=== PATIENT | female | born 1965 | race Caucasian/White ===

== ENCOUNTER 2017-01-05 19:26 | Emergency (ER) | payer BC ==
[~2017-01-05] VITALS: Ht 172.7 cm; Wt 99.8 kg
[2017-01-05 19:55] VITALS: BP 136/63
[2017-01-05] MEDS ORDERED: HYDROcodone/APAP 5/325MG 1 TAB TABLET PO ONE (20:30)
[2017-01-05] MEDS ORDERED: ACET-704 PO (20:50)
--- NOTE | 2017-01-05 20:50 | PHYS DOC ---
Past Medical History Past Medical History: GERD, High Cholesterol Past Surgical History: Appendectomy, Cholecystectomy, Colectomy, Hysterectomy, Knee Replacement Additional Past Surgical Histo: Pulmonary valve repair, shoulder, hernia Alcohol Use: None Drug Use: None Adult General Chief Complaint Chief Complaint: FINGER INJURY HPI HPI Patient is a 51 year old female who presents with right index finger and middle finger contusions after her fingers were caught/smashed in a car door. Review of Systems Review of Systems Constitutional: Denies fever or chills [] Eyes: Denies change in visual acuity, redness, or eye pain [] Musculoskeletal: right index finger and middle finger contusions Integument: Denies rash or skin lesions [] Neurologic: Denies headache, focal weakness or sensory changes [] Endocrine: Denies polyuria or polydipsia [] Current Medications Current Medications Current Medications Medications (Trade) Dose Ordered Sig/Fernando Start Time Stop Time Status Last Admin Dose Admin Acetaminophen/ Hydrocodone Bitart (Lortab 5/325) 1 tab 1X ONCE 01/05/17 20:30 01/05/17 20:31 DC 01/05/17 20:28 1 TAB Allergies Allergies Allergies Coded Allergies Type Severity Reaction Last Updated Verified No Known Drug Allergies 01/05/17 No Physical Exam Physical Exam Constitutional: Well developed, well nourished, no acute distress, non-toxic appearance. [] HENT: Normocephalic, atraumatic, bilateral external ears normal, oropharynx moist, no oral exudates, nose normal. [] Eyes: PERRLA, EOMI, conjunctiva normal, no discharge. [] Skin: Warm, dry, no erythema, no rash. [] Back: No tenderness, no CVA tenderness. [] Extremities: Right index finger with no obvious deformity, right middle finger with no obvious deformity, bruising noted on the lateral aspect of the right middle finger. Tenderness diffusely throughout the right index finger and middle finger. Full range of motion to the right index finger and right middle finger. Adequate radial and media sensation to the right index finger and middle fingers. +2 right radial pulse. Cap refill less than 2 seconds the right index finger and middle fingers. Neurologic: Alert and oriented X 3, normal motor function, normal sensory function, no focal deficits noted. [] Psychologic: Affect normal, judgement normal, mood normal. [] Current Patient Data Vital Signs Vital Signs Date Time Temp Pulse Resp B/P (MAP) Pulse Ox O2 Delivery O2 Flow Rate FiO2 01/05/17 19:55 98.1 95 16 97 Room Air 98.1 EKG EKG [] Radiology/Procedures Radiology/Procedures [] Course & Med Decision Making Course & Med Decision Making Pertinent Labs and Imaging studies reviewed. (See chart for details) Patient has contusion to the right index finger and middle finger. X-rays of the right hand interpreted by Dr. Adam 3 views were negative for any acute findings. fingers were splinted by gastrointestinal technician. Neurovascular exam done by me is normal, cap refill less than 2 seconds. Ice elevation encouraged. Follow-up with orthopedic doctor in one week. Dragon Disclaimer Dragon Disclaimer This electronic medical record was generated, in whole or in part, using a voice recognition dictation system. Departure Departure Impression: Primary Impression: Contusion of finger of right hand Disposition: HOME, SELF-CARE Condition: STABLE Referrals: NO PCP (PCP) CARINA RODRÍGUEZ MD Follow-up in one week Patient Instructions: Contusion, [id number] Additional Instructions: You were seen for right finger contusions. Ice elevate the extremities. Take the prescribed medicines as needed. Follow-up with the orthopedic doctor provided or your own doctor in 1-2 weeks if pain continues. Scripts Acetaminophen With Codeine (TYLENOL WITH CODEINE #3 TABLET) 1 Each Tablet 1 TAB PO PRN Q6HRS Y for PAIN, #30 TAB Prov: TA HUDSON APRN 01/05/17 Problem Qualifiers Primary Impression: Contusion of finger of right hand Encounter type: initial encounter Finger: index finger Damage to nail status: without damage Qualified Codes: S60.021A - Contusion of right index finger without damage to nail, initial encounter TA HUDSON APRN Jan 05, 2017 20:50
--- NOTE | 2017-01-06 08:46 | RAD ---
Indication injury, pain. Jammed in door. Pain particularly second and third digits. AP oblique and lateral views of the right hand were obtained. No bony abnormality is seen.
== END 2017-01-05 21:06 | disposition home or self-care (01) ==
LOC: ER 19:26
DX: S60.021A Contusion of right index finger without damage to nail, initial encounter (principal); S60.031A Contusion of right middle finger without damage to nail, initial encounter; E78.00 Pure hypercholesterolemia, unspecified; K21.9 Gastro-esophageal reflux disease without esophagitis; Z96.659 Presence of unspecified artificial knee joint; Z90.710 Acquired absence of both cervix and uterus; Z90.49 Acquired absence of other specified parts of digestive tract; W23.0XXA Caught, crushed, jammed, or pinched between moving objects, initial encounter; Y93.89 Activity, other specified; Y92.89 Other specified places as the place of occurrence of the external cause; Y99.8 Other external cause status
CPT/HCPCS: 29130; 73130; 99284-25